=== PATIENT | female | born 1995 | race Caucasian/White ===

== ENCOUNTER 2022-03-06 01:38 | Emergency (ER) | payer BC ==
[2022-03-06] MEDS ORDERED: MELOXICAM7.5 MG PO (03:58)
[2022-03-06] MEDS ORDERED: VOLTAREN ARTHRI20 GM TP (03:58)
[2022-03-06] MEDS ORDERED: LIDOCAINE PAIN1 EACH TP (03:58)
== END 2022-03-06 04:09 | disposition home or self-care (01) ==
LOC: ER1 01:38
DX: M25.562 Pain in left knee (principal); M54.10 Radiculopathy, site unspecified; E66.9 Obesity, unspecified
CPT/HCPCS: 73562; 99283